=== PATIENT | female | born 1995 | race Caucasian/White ===

== ENCOUNTER 2017-02-17 14:56 | Outpatient (CLI) ==
[2016-03-15 15:25] VITALS: BMI 21.6
[2017-02-17 15:37] LABS: CREATININE 0.83 mg/dL (0.60-1.30)
--- NOTE | 2017-02-17 16:49 | MRI ---
EXAM: MRI brain without and with IV contrast. DATE: 17 February 2017. HISTORY: Headaches. Patient had epidural injection during , patient reports migraine head aches and neck pain since the epidural. TECHNIQUE: Sagittal T1W pre and postcontrast, axial T2W, axial FLAIR, axial T1W pre and postcontras t, axial DWI, coronal T1W postcontrast, and coronal T2W GRE sequences of the brain were obtained usi 1.2 Yareli magnet. CONTRAST: Omniscan - 10 ml IV. COMPARISON: CT head 15 March 2016. FINDINGS: The ventricles, cisterns, and subarachnoid spaces are normal in size and configuration. No midline shift, mass effect or abnormal extra-axial fluid collection is apparent. No acute infarc t, hemorrhage or enhancing neoplasm is identified. No abnormal contrast enhancement is identified i n the brain, meninges or dura. The phillips - white matter differentiation is normal. No migration or diverticulation abnormality is identified. The amygdala, hippocampus, and parahippocampal gyri are symmetric and normal bilaterally. The fornices and hypothalamus appear normal. The 7th/8th cranial nerve complexes, cerebellopontine angles, brainstem, and visible cervical spinal cord are normal. There is no cerebellar tonsillar ectopia. The pituitary gland is somewhat small in size, without di stinct neoplasm. Corpus callosum is normal in size and configuration. Left vertebral artery is dom inant. Flow voids are present in the major intracranial arteries and in the dural venous sinuses. No aneurysm, AVM or dural venous sinus thrombosis is apparent. No orbit abnormality is identified. The mastoid air cells are unremarkable. There is no acute sinusitis. No neck mass or lymphadenopa thy is detected. No calvarial neoplasm or acute fracture is evident. IMPRESSIONS: 1. Normal unenhanced/enhanced brain. No acute infarct, hemorrhage, mass or hydrocephalus. 2. Slightly small pituitary gland. No pituitary lesion.
== END 2017-02-17 14:57 | disposition home or self-care (01) ==
LOC: RAD 14:56
PROVIDERS: ATTEND Nurse Practitioner
DX: R51 Headache (principal)
CPT/HCPCS: 36415; 82565

== ENCOUNTER 2017-02-18 14:34 | Outpatient (CLI) ==
[2016-03-15 15:25] VITALS: BMI 21.6
--- NOTE | 2017-02-18 16:14 | MRI ---
EXAM: MRA brain without IV contrast. DATE: 18 February 2017. HISTORY: Epidural during , neck pain and migraine headaches since the epidural. TECHNIQUE: 3-D [id number] sequence centered on the [place] was performed without IV contr ast, using 1.5 Yareli magnet. 3-D MIP reconstruction images of the intracranial arteries were produc ed in addition to the axial source images. Note: Degree arterial vascular stenosis is determined using NASCET criteria. COMPARISON: MRI brain 17 February 2017. FINDINGS: Left vertebral artery is dominant. Basilar artery is normal in diameter, without focal s tenosis, dissection or aneurysm. Each superior cerebellar artery is intact. Right and left PCOM are not visible. ACOM is not visible. Symmetric bilateral blood flow is evident within the anterior, m iddle, and posterior cerebral artery distributions peripherally. No intracranial aneurysm or AVM is detected. Both petrous ICAs are normal. Each cavernous ICA reveals flow artifact vs step off ge fact of the junction of the C2 and C1 segment.. IMPRESSIONS: 1. Nonvisualization of the ACOM and bilateral PCOM. 2. No intracranial aneurysm or AVM. 3. Left vertebral artery is dominant. 4. Normal bilateral petrous ICAs. 5. Probable flow artifacts in each cavernous ICA. Mild stenoses are less likely given the patient' s age and appearance on source images.
== END 2017-02-18 14:35 | disposition home or self-care (01) ==
LOC: RAD 14:34
PROVIDERS: ATTEND Nurse Practitioner
DX: R51 Headache (principal)

== ENCOUNTER 2017-03-15 15:21 | Outpatient (CLI) ==
[2016-03-15 15:25] VITALS: BMI 21.6
--- NOTE | 2017-03-15 15:58 | DI ---
EXAM: Six views of the cervical spine HISTORY: Neck pain and increased headaches. COMPARISON: CT cervical spine 03/15/2016 FINDINGS: There is no acute compression fracture or subluxation. The facets and posterior processes are normal. Prevertebral soft tissues are normal. Neural foramen are patent. Odontoid process is n ormal without fracture. IMPRESSION: No acute compression fracture, subluxation or abnormality of the cervical spine.
== END 2017-03-15 15:22 | disposition home or self-care (01) ==
LOC: RAD 15:21
PROVIDERS: ATTEND Nurse Practitioner
DX: M54.2 Cervicalgia (principal)

== ENCOUNTER 2017-04-01 12:39 | Outpatient (CLI) ==
[2016-03-15 15:25] VITALS: BMI 21.6
--- NOTE | 2017-04-01 14:24 | US ---
EXAM: Transvaginal pelvic ultrasound. History: Right-sided pelvic pain. Comparison: CT abdomen pelvis 03/15/2016 Technique: Multiple sonographic images through the pelvis were obtained. Color duplex Doppler was used to interrogate vascular flow. Findings: The uterus measures 8.4 cm x 3.7 cm x 5.6 cm. Endometrium measures 0.6 cm in thickness. Small [place] cyst within the cervix measuring 0.5 cm. No free fluid in the cul-de-sac. Both ovaries are normal in size. Blood flow is documented within each ovary. Small follicles seen within each ovary. Impression: Examination within normal limits.
== END 2017-04-01 12:40 | disposition home or self-care (01) ==
LOC: RAD 12:39
PROVIDERS: ATTEND Nurse Practitioner
DX: R10.2 Pelvic and perineal pain (principal); Z72.51 High risk heterosexual behavior
CPT/HCPCS: 36415; 84702

== ENCOUNTER 2017-08-18 14:37 | Emergency (ER) ==
[2017-08-18 14:46] VITALS: TEMP 97.5; BMI 26.9
--- NOTE | 2017-08-18 14:53 | ED.PDOC ---
General ED Provider: Dr. MARISELA PEREZ JR Chief Complaint: Urinary Problem Stated Complaint: [place]-tinged urine since yesterday No burning, no pain; [employer], 2 weeks to be seen. [ End ]97.5 113 20 97% 138/100 03/07( MIGRAINE) STATES HAS HEART PROBLEM BUT DOESN'T KNOW WHAT IT IS.; TRAMADOL FOR HEADACHE AND BACK PAIN WITHOUT RELEIF NO PT, MIGRAINES HAS NOT SEEN NEUROLOGIST , HEADACHE 03/07 TODAY. ; OVARIAN CYSTS BUT HAS NOT SEEN PRODUCT DEVELOPMENT WORKER- PARENTS NOT HAS SEEN PRODUCT DEVELOPMENT WORKER PT STATES HAS APPT FOR PRODUCT DEVELOPMENT WORKER FOR IMPLANT- NEEDS TO DISCUSS OVARIAN CUST TREATMENT WITH PRODUCT DEVELOPMENT WORKER, STATES DID NOT HAVE ULCER PER DR GAGE. Time Seen by Physician: 14:50 Mode of Arrival: Walk-In Information Source: Patient Exam Limitations: No limitations Primary Care Provider: CHRISTOPHER THEODORE Nursing and Triage Documentation Reviewed and Agree: No Reviewed sepsis parameters & appropriate labs ordered?: No System Inflammatory Response Syndrome: Pulse >90 BPM Sepsis Protocol: For patient's 13 years and over: Temp is 96.8 and below OR 101 and greater Pulse >90 BPM Resp >20/minute Acutely Altered Mental Status Are patient's symptoms suggestive of a new infection, such as: -Pneumonia -Skin, Soft Tissue -Endocarditis -UTI -Bone, Joint Infection -Implantable Device -Acute Abdominal Infection -Wound Infection -Meningitis -Blood Stream Catheter Infection -Unknown System Inflammatory Response Syndrome: Not Applicable Review of Systems - Review Of Systems Constitutional: Reports: Malaise Eyes: Reports: Photophobia Ears, Nose, Mouth, Throat: Reports: No symptoms Respiratory: Reports: No symptoms Cardiac: Reports: No symptoms GI: Reports: Abdominal pain, Diarrhea, Nausea : Reports: Frequency, Hematuria Musculoskeletal: Reports: Back pain (CHRONIC), Neck pain (CHRONIC) Skin: Reports: No symptoms Neurological: Reports: Headache Endocrine: Reports: No symptoms Hematologic/Lymphatic: Reports: No symptoms All Other Systems: Other Past Medical History - Past Medical History Previously Healthy: Yes Endocrine: Reports: None Cardiovascular: Reports: Other ( HEART PROBLEM) Respiratory: Reports: None Hematological: Reports: None Gastrointestinal: Reports: PUD (OLD RECORD) Genitourinary: Reports: None Neuro/Psych: Reports: Anxiety, Depression, Bipolar Disorder Musculoskeletal: Reports: None Cancer: Reports: None Last Menstrual Period: 1 1/2 weeks - Surgical History General Surgical History: Reports: Cholecystectomy (GB surgery ), Other ( Lacerated spleen) - Family History Family History: Reports: None - Social History Smoking Status: Current every day smoker, Light tobacco smoker Hx Substance Use: Yes (MARIJUANA) Alcohol Screening: Occasionally Physical Exam - Physical Exam Appearance: Well-appearing, Thin Pain Distress: Moderate Eyes: ZEUS, EOMI, Conjunctiva clear ENT: Ears normal, Nose normal, Oropharynx normal Neck: Supple Respiratory: Airway patent, Breath sounds clear, Breath sounds equal, Respirations nonlabored Cardiovascular: RRR, Pulses normal, No rub, No murmur GI/: Soft, No masses, Bowel sounds normal, No Organomegaly, Tender (NIONFOCAL LOWER QUADRANTS) Musculoskeletal: Normal strength, ROM intact, No edema, No calf tenderness Skin: Warm, Dry, Normal color Neurological: Sensation intact, Motor intact, Reflexes intact, Cranial nerves intact, Alert, Oriented Psychiatric: Affect appropriate, Mood appropriate Critical Care Note - Critical Care Note Total Time (mins): 10 Course - Course Orders, Labs, Meds: Lab Review 08/18/17 14:58 Urine Color Yellow Urine Clarity Clear Urine pH 5.0 Ur Specific [place] >=1.030 Urine Protein 1+ Urine Glucose (UA) Negative Urine Ketones 1+ Urine Blood Negative Urine Nitrite Negative Urine Bilirubin 1+ Urine Urobilinogen 1.0 Ur Leukocyte Esterase Negative Urine Microscopic WBC 0-2 Ur Squamous Epith Cells 5-10 Urine Mucus 2+ Orders Category Date Time Status UA [URINALYSIS C & S IF INDICATED] Stat LAB 08/18/17 14:58 Completed Hydrocodone Bit/Acetaminophen [[place] 5-325] MEDS 08/18/17 15:06 Discontinued 1 tab PO ONCE STA Medications Discontinued Medications Generic Name Dose Route Start Last Admin Trade Name Freq PRN Reason Stop Dose Admin Acetaminophen/Hydrocodone Bitart 1 tab 08/18/17 15:06 08/18/17 15:17 [place] 5-325 PO 08/18/17 15:07 1 tab ONCE STA Administration Vital Signs: Temp Pulse Resp BP Pulse Ox 08/18/17 14:38 97.5 F L 113 H 20 138/100 H 97 Departure - Departure Time of Disposition: 17:15 Disposition: HOME SELF-CARE Discharge Problem: Headache Qualifiers: Headache type: unspecified Headache chronicity pattern: acute headache Intractability: not intractable Qualified Code(s): R51 - Headache Hematuria Qualifiers: Hematuria type: gross Qualified Code(s): R31.0 - Gross hematuria Diarrhea Qualifiers: Diarrhea type: presumed infectious Qualified Code(s): A09 - Infectious gastroenteritis and colitis, unspecified Instructions: Dehydration (ED), Acute Diarrhea (ED), Abdominal Pain (ED), General Headache (ED), Hematuria (ED) Condition: Fair Pt referred to PMD for follow-up: Yes Additional Instructions: DISCUSS NEUROLOGY CONSULT WITH PMD FOR HEADACHES DISCUSS HEMATURIA WITH PMD- REPEAT IN 1 WEEK- IF STILL PRESENT EVALUATE FOR NONINFECTIOUS HEMATURIA DIARRHEA SHOULD CLEAR IN 1-2 DAYS RECOMMEND PEPTOBISMOL UP TO 8 TIMES A DAY INCREASE FLUIDS FOR THREE DAYS (6-12 CUPS OF CLEAR LIQUID) MAY USE nORCO FOR THIS HEADACHE IF NOT RESOLVED- NO REFILLS Prescriptions: Hydrocodone Bit/Acetaminophen [[place] 5-325] 1 - 2 tab PO Q6HR PRN #7 tablet PRN Reason: pain Allergies/Adverse Reactions: Allergies No Known Allergies Allergy (Verified 08/18/17 14:47) Home Medications: Ambulatory Orders Hydrocodone Bit/Acetaminophen [[place] 5-325] 1 - 2 tab PO Q6HR PRN #7 tablet
[2017-08-18] MEDS ORDERED: NORCO 5-325 PO STA (15:06)
[2017-08-18 15:15] LABS: BILIRUBIN,URINE 1+ (NEGATIVE); KETONES,URINE 1+ (NEGATIVE); LEUKOCYTE ESTERASE ,URINE Negative (NEGATIVE); NITRITE,URINE Negative (NEGATIVE); PROTEIN,URINE 1+ (NEGATIVE); URINE, BLOOD Negative (NEGATIVE)
[2017-08-18 15:16] LABS: ADD URINE MICROSCOPIC YES
[2017-08-18 17:18] VITALS: BP 138/85
== END 2017-08-18 17:21 | disposition home or self-care (01) ==
LOC: ED 14:37
DX: R51 Headache (principal); R31.0 Gross hematuria; A09 Infectious gastroenteritis and colitis, unspecified; F17.210 Nicotine dependence, cigarettes, uncomplicated
CPT/HCPCS: 81001; 99282

== ENCOUNTER 2017-08-24 14:14 | Emergency (ER) ==
[2017-08-24 14:20] VITALS: BP 138/84; TEMP 99.2; BMI 27.5
--- NOTE | 2017-08-24 16:32 | CT ---
EXAM: CT Abdomen without contrast. CT Pelvis without contrast. HISTORY: Lower abdominal pain. Hematuria. Dysuria. COMPARISON: 03/15/2016. TECHNIQUE: Multiple axial images of the abdomen and pelvis were obtained without intravenous contras t. Images were reformatted in the coronal plane. FINDINGS: Please note that evaluation of the abdominal and pelvic structures is limited due to lack of intravenous contrast. The lung bases are clear. No acute osseous abnormality detected. Gallbladder is absent. The liver, pancreas, spleen, and adrenal glands demonstrate normal contour. No calcified renal stones, hydronephrosis or perinephric inflammation identified. The bowel is normal in course and caliber without evidence for obstruction or inflammatory process. The appendix is normal. No calcified bladder stones are seen. The bladder is collapsed. Uterus dem onstrates normal contour. No free fluid or free air identified. Small fat-containing umbilical yuli ia is present. IMPRESSION: No acute abnormality within the abdomen or pelvis.
[2017-08-24] MEDS ORDERED: TORADOL IM STA (16:40)
[2017-08-24] MEDS ORDERED: NORCO 10-325 PO STA (16:41)
--- NOTE | 2017-08-24 16:45 | ED.PDOC ---
General ED Provider: Dr. BECCA JOHNS Chief Complaint: Urinary Problem Stated Complaint: hematuria Time Seen by Physician: 14:30 (seen with nurse and pratima at all times ) Mode of Arrival: Walk-In Information Source: Patient Exam Limitations: No limitations (during discharg e december was present elevated liver enzymes discussed may at bedside ) Primary Care Provider: DORCAS GALLO Nursing and Triage Documentation Reviewed and Agree: Yes Reviewed sepsis parameters & appropriate labs ordered?: Yes System Inflammatory Response Syndrome: Not Applicable Sepsis Protocol: For patient's 13 years and over: Temp is 96.8 and below OR 101 and greater Pulse >90 BPM Resp >20/minute Acutely Altered Mental Status Are patient's symptoms suggestive of a new infection, such as: -Pneumonia -Skin, Soft Tissue -Endocarditis -UTI -Bone, Joint Infection -Implantable Device -Acute Abdominal Infection -Wound Infection -Meningitis -Blood Stream Catheter Infection -Unknown Complaint Exam - Complaint/Exam Patient Complains of: Denies: Vaginal discharge, Pain, Foreign body, Dysuria Onset/Duration: 2 days ago noted blood in the urine has plevic pain and headache Symptoms Are: Resolved (headache continues) Timing: Intermittent Episodes of Voiding Over Last 12 Hours: 5 Initial Severity: Mild Current Severity: None Location of Pain: Reports: Left, Flank, Suprapubic Character: Reports: Dull Aggravating: Reports: Urination Alleviating: Reports: None Associated Signs and Symptoms: Reports: Back pain, Hematuria, Dysuria (has all be negative today). Denies: Diaphoresis, Fever, Constipation, Blood in stool, Rectal pain, Appetite change, Nausea, Vomiting, Decreased urine output, Increased urine frequency, Increased thirst, Decreased activity, Lethargy, Abdominal Pain, Bubble bath use, Vaginal bleeding, Vaginal discharge, Genital swelling, Genital blisters, Retained foreign body Ovarian Torsion Risk Factors: Reports: Reproductive age Surgical Obstruction Risk Factors: Reports: None RH Status: Unknown Related Surgical History: Reports: None Abdominal Findings: Present: None Differential Diagnoses: , Renal Colic, Ureteral Stone, UTI Review of Systems - Review Of Systems Constitutional: Reports: No symptoms Eyes: Reports: No symptoms Ears, Nose, Mouth, Throat: Reports: No symptoms Respiratory: Reports: No symptoms Cardiac: Reports: No symptoms GI: Reports: Abdominal pain : Reports: Flank pain, Hematuria Musculoskeletal: Reports: No symptoms Skin: Reports: No symptoms Neurological: Reports: No symptoms Endocrine: Reports: No symptoms Hematologic/Lymphatic: Reports: No symptoms All Other Systems: Reviewed and Negative Past Medical History - Past Medical History Previously Healthy: Yes Endocrine: Reports: None Cardiovascular: Reports: Other ( HEART PROBLEM) Respiratory: Reports: None Hematological: Reports: None Gastrointestinal: Reports: PUD (OLD RECORD) Genitourinary: Reports: None Neuro/Psych: Reports: None Musculoskeletal: Reports: None Cancer: Reports: None Last Menstrual Period: first week july - Surgical History General Surgical History: Reports: Cholecystectomy - Family History Family History: Reports: None - Social History Smoking Status: Current every day smoker, Light tobacco smoker Hx Substance Use: Yes (MARIJUANA) Alcohol Screening: None Physical Exam - Physical Exam Appearance: Well-appearing, No pain distress, Well-nourished Eyes: ZEUS, EOMI, Conjunctiva clear ENT: Ears normal, Nose normal, Oropharynx normal Respiratory: Airway patent, Breath sounds clear, Breath sounds equal, Respirations nonlabored Cardiovascular: RRR, Pulses normal, No rub, No murmur GI/: Soft, Nontender, No masses, Bowel sounds normal, No Organomegaly Musculoskeletal: Normal strength, ROM intact, No edema, No calf tenderness Skin: Warm, Dry, Normal color Neurological: Sensation intact, Motor intact, Reflexes intact, Cranial nerves intact, Alert, Oriented Psychiatric: Affect appropriate, Mood appropriate Interpretation - Radiology Interpretation Radiology Interpretation By: Radiologist Radiology Results: No acute changes Critical Care Note - Critical Care Note Total Time (mins): 0 Course - Course Hematology/Chemistry: 08/24/17 15:45 08/24/17 15:45 Orders, Labs, Meds: Lab Review 08/24/17 08/24/17 08/24/17 15:30 15:40 15:45 WBC 6.35 RBC 4.41 Hgb 13.1 Hct 37.7 MCV 85.5 MCH 29.7 MCHC 34.7 RDW Coeff of Jeri 13.4 Plt Count 208 Neutrophils % (Manual) 64.0 Lymphocytes % (Manual) 12.0 Monocytes % (Manual) 5.0 Reactive Lymphocytes 19.0 H Anisocytosis Not present Sodium Potassium Chloride Carbon Dioxide Anion Gap BUN Creatinine Estimated GFR (MDRD) BUN/Creatinine Ratio Glucose Calcium Total Bilirubin AST ALT Alkaline Phosphatase Total Protein Albumin Globulin Albumin/Globulin Ratio Urine Color Yellow Urine Clarity Clear Urine pH >=9.0 Ur Specific [place] 1.020 Urine Protein 1+ Urine Glucose (UA) Negative Urine Ketones Trace Urine Blood Negative Urine Nitrite Negative Urine Bilirubin 1+ Urine Urobilinogen 2.0 Ur Leukocyte Esterase Negative Urine Microscopic WBC 0-2 Ur Squamous Epith Cells Not present Urine Mucus 2+ Urine Test Negative 08/24/17 15:45 WBC RBC Hgb Hct MCV MCH MCHC RDW Coeff of Jeri Plt Count Neutrophils % (Manual) Lymphocytes % (Manual) Monocytes % (Manual) Reactive Lymphocytes Anisocytosis Sodium 141 Potassium 3.3 L Chloride 107 Carbon Dioxide 26 Anion Gap 11.3 BUN 10 Creatinine 0.69 Estimated GFR (MDRD) 105.00 BUN/Creatinine Ratio 14.49 Glucose 86 Calcium 9.0 Total Bilirubin 1.0 AST 126 H ALT 243 H Alkaline Phosphatase 141 H Total Protein 6.7 Albumin 3.7 Globulin 3.0 Albumin/Globulin Ratio 1.23 Urine Color Urine Clarity Urine pH Ur Specific [place] Urine Protein Urine Glucose (UA) Urine Ketones Urine Blood Urine Nitrite Urine Bilirubin Urine Urobilinogen Ur Leukocyte Esterase Urine Microscopic WBC Ur Squamous Epith Cells Urine Mucus Urine Test Orders Category Date Time Status Bladder [ED BLADDER SCAN] .ONCE EMERGENCY 08/24/17 15:38 Active CBC W/ AUTO DIFF Stat LAB 08/24/17 15:45 Completed COMPREHENSIVE METABOLIC PANEL Stat LAB 08/24/17 15:45 Completed MANUAL DIFFERENTIAL Stat LAB 08/24/17 15:45 Completed MONONUCLOSIS SCREEN Urgent LAB 08/24/17 15:45 Received URINALYSIS C & S IF INDICATED Stat LAB 08/24/17 15:30 Completed URINE Stat LAB 08/24/17 15:40 Completed Hydrocodone Bit/Acetaminophen [[place] 10-325] MEDS 08/24/17 16:41 Discontinued 1 tab PO ONCE STA Ketorolac Tromethamine [Toradol] MEDS 08/24/17 16:40 Discontinued 60 mg IM ONCE STA CT ABD/PEL WO RENAL STONE PROT Stat RADS 08/24/17 15:38 Completed Medications Discontinued Medications Generic Name Dose Route Start Last Admin Trade Name Freq PRN Reason Stop Dose Admin Acetaminophen/Hydrocodone Bitart 1 tab 08/24/17 16:41 [place] 10-325 PO 08/24/17 16:42 ONCE STA Ketorolac Tromethamine 60 mg 08/24/17 16:40 Toradol IM 08/24/17 16:41 ONCE STA Vital Signs: Temp Pulse Resp BP Pulse Ox 08/24/17 14:14 99.2 F 104 H 16 138/84 99 Departure - Departure Time of Disposition: 05:30 Disposition: HOME SELF-CARE Discharge Problem: Abnormal liver enzymes, Mononucleosis syndrome Headache Qualifiers: Headache type: unspecified Headache chronicity pattern: acute headache Intractability: not intractable Qualified Code(s): R51 - Headache Instructions: Liver Profile (GEN), Mononucleosis (ED) Condition: Good Pt referred to PMD for follow-up: Yes Additional Instructions: Please call your Family Physician as soon as possible to schedule a follow-up appointment. you liver enzymes are high we have provided you with a copy of all your results and a hepatitis panel has been ordered results of which will be avilable in a few days. your result may be due to mononucleosis but still do follow up avoid contact sports Allergies/Adverse Reactions: Allergies No Known Allergies Allergy (Verified 08/24/17 14:21) Home Medications: Ambulatory Orders 1 [No Reported Medications] 08/24/17 Disposition Discussed With: Patient
== END 2017-08-24 17:33 | disposition home or self-care (01) ==
LOC: ED 14:14
DX: B27.90 Infectious mononucleosis, unspecified without complication (principal); R74.8 Abnormal levels of other serum enzymes; R51 Headache; F17.210 Nicotine dependence, cigarettes, uncomplicated
CPT/HCPCS: 36415; 74176; 80053; 81001; 81025; 85007; 85025; 86308; 96372; 99283

== ENCOUNTER 2017-09-17 13:47 | Emergency (ER) ==
[2017-09-17 13:53] VITALS: TEMP 98.6; BMI 26.6
--- NOTE | 2017-09-17 14:24 | ED.PDOC ---
General ED Provider: Dr. ARABELLA CROWELL Chief Complaint: Vaginal Bleeding Stated Complaint: Patient states that she is 5 weeks but has not had US comfirmation by her obgyn. She complains of using one pad every 30 min with cramps " she feels like she is being eaten by a shark" Time Seen by Physician: 14:23 Mode of Arrival: Walk-In Information Source: Patient Exam Limitations: No limitations Nursing and Triage Documentation Reviewed and Agree: Yes Reviewed sepsis parameters & appropriate labs ordered?: Yes System Inflammatory Response Syndrome: Not Applicable Sepsis Protocol: For patient's 13 years and over: Temp is 96.8 and below OR 101 and greater Pulse >90 BPM Resp >20/minute Acutely Altered Mental Status Are patient's symptoms suggestive of a new infection, such as: -Pneumonia -Skin, Soft Tissue -Endocarditis -UTI -Bone, Joint Infection -Implantable Device -Acute Abdominal Infection -Wound Infection -Meningitis -Blood Stream Catheter Infection -Unknown System Inflammatory Response Syndrome: Not Applicable ONLINE CONTENT EDITOR Complaint Exam - Vaginal Bleeding Complaint/Exam Onset/Duration: yesterday Symptoms Are: Still present Timing: Constant Initial Severity: Severe Current Severity: Severe # of Pads Per Hour: 2 Character: Reports: Bright red, Clots Aggravating: Reports: None Associated Signs and Symptoms: Reports: Cramping. Denies: Dizziness, Lightheadedness, Pale, UTI symptoms, Abdominal pain, Generalized pain Related History: Reports: Recent + test : 2 Para: 1 Ectopic Risk Factors: Reports: None Spontaneous AB Risk Factors: Reports: None Placental Abruption Risk Factors: Reports: None Patient Rh Status: Unknown Differential Diagnoses: Ectopic , Threatened AB Review of Systems - Review Of Systems Constitutional: Reports: No symptoms Respiratory: Reports: No symptoms Cardiac: Reports: No symptoms : Reports: Discharge (bloody) Neurological: Reports: Anxiety All Other Systems: Reviewed and Negative Past Medical History - Past Medical History Previously Healthy: Yes Endocrine: Reports: None Cardiovascular: Reports: Other ( HEART PROBLEM) Respiratory: Reports: None Hematological: Reports: None Gastrointestinal: Reports: PUD (OLD RECORD) Genitourinary: Reports: None Neuro/Psych: Reports: None Musculoskeletal: Reports: None Cancer: Reports: None Last Menstrual Period: jul 29, 2017 - Surgical History General Surgical History: Reports: Cholecystectomy - Family History Family History: Reports: None - Social History Smoking Status: Current every day smoker, Light tobacco smoker Hx Substance Use: Yes (MARIJUANA) Alcohol Screening: None Physical Exam - Physical Exam Appearance: Ill-appearing Pain Distress: Severe Neck: Supple Respiratory: Airway patent Cardiovascular: Tachycardia GI/: Soft, Tender Musculoskeletal: Normal strength, ROM intact, No edema, No calf tenderness Skin: Warm, Dry Psychiatric: Anxious Physician Notification - Case Discussed Physician Notified: Dr. Canas Time of Notification: 15:48 Critical Care Note - Critical Care Note Total Time (mins): 0 Course - Course Hematology/Chemistry: 09/17/17 14:23 09/17/17 14:23 Orders, Labs, Meds: Lab Review 09/17/17 09/17/17 09/17/17 14:05 14:05 14:23 WBC RBC Hgb Hct MCV MCH MCHC RDW Coeff of Jeri Plt Count Immature Gran % (Auto) Neut % (Auto) Lymph % (Auto) [place] % (Auto) Eos % (Auto) Baso % (Auto) Immature Gran # (Auto) Neut # Lymph # [place] # Eos # Baso # Sodium Potassium Chloride Carbon Dioxide Anion Gap BUN Creatinine Estimated GFR (MDRD) BUN/Creatinine Ratio Glucose Calcium Total Bilirubin AST ALT Alkaline Phosphatase Total Protein Albumin Globulin Albumin/Globulin Ratio HCG, Quant 11.06 Serum , Qual Urine Color Yellow Urine Clarity Clear Urine pH 8.5 Ur Specific [place] 1.020 Urine Protein Negative Urine Glucose (UA) Negative Urine Ketones Negative Urine Blood Negative Urine Nitrite Negative Urine Bilirubin Negative Urine Urobilinogen 0.2 Ur Leukocyte Esterase Negative Urine Test Negative 09/17/17 09/17/17 09/17/17 14:23 14:23 14:23 WBC 8.49 RBC 4.25 Hgb 12.7 Hct 37.0 MCV 87.1 MCH 29.9 MCHC 34.3 RDW Coeff of Jeri 14.2 Plt Count 303 Immature Gran % (Auto) 0.1 Neut % (Auto) 59.1 Lymph % (Auto) 33.5 [place] % (Auto) 4.9 Eos % (Auto) 1.8 Baso % (Auto) 0.6 Immature Gran # (Auto) 0.0 Neut # 5.0 Lymph # 2.8 [place] # 0.4 Eos # 0.2 Baso # 0.1 Sodium 141 Potassium 3.8 Chloride 110 H Carbon Dioxide 24 Anion Gap 10.8 BUN 12 Creatinine 0.72 Estimated GFR (MDRD) 100.00 BUN/Creatinine Ratio 16.66 Glucose 97 Calcium 9.1 Total Bilirubin 0.3 AST 40 H ALT 78 Alkaline Phosphatase 83 Total Protein 6.9 Albumin 3.8 Globulin 3.1 Albumin/Globulin Ratio 1.23 HCG, Quant Serum , Qual Positive Urine Color Urine Clarity Urine pH Ur Specific [place] Urine Protein Urine Glucose (UA) Urine Ketones Urine Blood Urine Nitrite Urine Bilirubin Urine Urobilinogen Ur Leukocyte Esterase Urine Test Orders Category Date Time Status CBC W/ AUTO DIFF Stat LAB 09/17/17 14:23 Completed CMP [COMPREHENSIVE METABOLIC PANEL] Stat LAB 09/17/17 14:23 Completed HCG QUALITATIVE [SERUM ] Stat LAB 09/17/17 14:23 Completed HCG,QUANTITATIVE Stat LAB 09/17/17 14:23 Completed URINALYSIS C & S IF INDICATED Stat LAB 09/17/17 14:05 Completed URINE Stat LAB 09/17/17 14:05 Completed Morphine Sulfate [Morphine 2 mg/ml Syringe] MEDS 09/17/17 16:03 Discontinued 2 mg IVP ONCE STA Ondansetron HCl/Pf [Zofran 4 mg/2 ml] MEDS 09/17/17 16:03 Discontinued 4 mg IVP ONCE STA Medications Discontinued Medications Generic Name Dose Route Start Last Admin Trade Name Freq PRN Reason Stop Dose Admin Morphine Sulfate 2 mg 09/17/17 16:03 09/17/17 16:21 Morphine 2 Mg/Ml Syringe IVP 09/17/17 16:04 2 mg ONCE STA Administration Ondansetron HCl 4 mg 09/17/17 16:03 09/17/17 16:20 Zofran 4 Mg/2 Ml IVP 09/17/17 16:04 4 mg ONCE STA Administration Vital Signs: Temp Pulse Resp BP Pulse Ox 09/17/17 15:36 111/56 L 09/17/17 15:26 108/62 09/17/17 14:55 121/64 09/17/17 13:47 98.6 F 101 H 20 152/110 H 99 Departure - Departure Time of Disposition: 16:18 Disposition: TSF SHORT-TRM HOSP Discharge Problem: Bleeding from vagina, Threatened in first trimester Instructions: Threatened Miscarriage (ED) Condition: Stable Pt referred to PMD for follow-up: Yes IPMP verified?: No Allergies/Adverse Reactions: Allergies No Known Allergies Allergy (Verified 09/17/17 13:56) Home Medications: Ambulatory Orders Vit Calc,Iron,Folic [ Vitamins] 1 each PO DAILY 09/17/17 Pt. Stabilized Within Hospital's Capabilities/Transferred To: [facility] Transfer Form Completed: Yes Disposition Discussed With: Patient, Family
[2017-09-17 15:36] VITALS: BP 111/56
[2017-09-17] MEDS ORDERED: ZOFRAN 4 MG/2 ML IVP STA (16:03)
[2017-09-17] MEDS ORDERED: MORPHINE 2 MG/ML SYRINGE IVP STA (16:03)
== END 2017-09-17 16:30 | disposition short-term general hospital (02) ==
LOC: ED 13:47
DX: O20.0 Threatened abortion (principal); F17.210 Nicotine dependence, cigarettes, uncomplicated
CPT/HCPCS: 36415; 80053; 81001; 81025; 84702; 84703; 85025; 96374; 96375; 99285

== ENCOUNTER 2017-09-17 16:27 | Outpatient (CLI) ==
[2017-09-17 13:53] VITALS: BMI 26.6
== END 2017-09-17 16:28 | disposition short-term general hospital (02) ==
LOC: AMBL 16:27
PROVIDERS: ATTEND Internal Medicine Geriatric Medicine
DX: R10.9 Unspecified abdominal pain (principal); N93.8 Other specified abnormal uterine and vaginal bleeding